=== PATIENT | female | born 1995 | race Caucasian/White ===

== ENCOUNTER 2017-03-26 13:49 | Outpatient (CLI) ==
[2017-03-23 10:56] VITALS: BMI 22.8
--- NOTE | 2017-03-26 14:16 | CT ---
EXAM: CT brain without contrast HISTORY: Headache TECHNIQUE: CT of the brain without intravenous contrast FINDINGS: There is no acute hemorrhage midline shift or mass effect. No hydrocephalus or abnormal e xtra-axial fluid collection. No significant parenchymal attenuation abnormality. The bony cranium a ppears normal. The visualized paranasal sinuses are clear. Soft tissues without significant abnormali ty. IMPRESSION: 1. CT of the brain within normal limits.
== END 2017-03-26 13:50 | disposition home or self-care (01) ==
LOC: RAD 13:49
PROVIDERS: ATTEND Emergency Medicine
DX: R51 Headache (principal)

== ENCOUNTER 2017-03-27 12:31 | Outpatient (CLI) ==
[2017-03-23 10:56] VITALS: BMI 22.8
--- NOTE | 2017-03-27 13:24 | CT ---
EXAM: CT of the lumbar spine without contrast History: Lumbar radiculopathy. Technique: Multiplanar CT images through the lumbar spine were obtained without the administration o f IV contrast Findings: Moderate amount of colonic stool. No acute fracture or subluxation of the lumbar spine. Disc space heights are preserved. T12-L1: No significant disc bulge, central canal stenosis or neural foraminal narrowing. L1-L2: No significant disc bulge, central canal stenosis or neural foraminal narrowing. L2-L3: No significant disc bulge, central canal stenosis or neural foraminal narrowing. L3-L4: Small disc bulge effacing the anterior thecal sac with no significant central canal stenosis or neural foraminal narrowing. L4-L5: Small disc bulge effacing the anterior thecal sac with no significant central canal stenosis or neural foraminal narrowing. L5-S1: No significant disc bulge, central canal stenosis or neural foraminal narrowing. Impression: 1. No acute osseous abnormality of the lumbar spine. 2. No significant degenerative changes of the lumbar spine with level by level analysis as detailed above. 3. Moderate amount of colonic stool.
== END 2017-03-27 12:32 | disposition home or self-care (01) ==
LOC: RAD 12:31
PROVIDERS: ATTEND Emergency Medicine
DX: M47.26 Other spondylosis with radiculopathy, lumbar region (principal)

== ENCOUNTER 2017-03-29 12:45 | Outpatient (CLI) ==
[2017-03-23 10:56] VITALS: BMI 22.8
--- NOTE | 2017-03-29 13:25 | CT ---
EXAM: CT of the thoracic spine without contrast History: Thoracic back pain. Comparison: Lumbar spine CT 03/27/2017 Technique: Multiplanar CT images through the thoracic spine were obtained without the administration of IV contrast Findings: The visualized lungs are free of consolidation. 5 mm incidental pleural-based nodule with in the right lower lung. Micronodules with tree in bud opacities seen within the left lower lobe. N o acute fracture or subluxation of the thoracic spine. Disc space heights are preserved. The bony s lars canal is not compromised. No significant bony neural foraminal narrowing. Impression: 1. No acute osseous abnormality of the thoracic spine and no significant degenerative changes of the thoracic spine. 2. Left lower lobe bronchopneumonia.
== END 2017-03-29 12:46 | disposition home or self-care (01) ==
LOC: RAD 12:45
PROVIDERS: ATTEND Emergency Medicine
DX: M47.24 Other spondylosis with radiculopathy, thoracic region (principal)

== ENCOUNTER 2017-04-19 21:14 | Emergency (ER) ==
[2017-04-19 21:24] VITALS: BP 117/70; TEMP 97.8; BMI 20.7
--- NOTE | 2017-04-19 22:23 | ED.PDOC ---
General ED Provider: Dr. ADILENE ALVARADO Chief Complaint: Non-specific Complaint Stated Complaint: Patient is a 21 year old female who comes to the Er after she removed a mucus plug with some mild bleeding. She was worried that she may need an antibiotic. she states she knows that she has a perforated septum but has no history of snortting cocaine. She also Denies having a nose ring. Also complains of sinus conjestion and pain mostly on the right. Time Seen by Physician: 22:20 Mode of Arrival: Walk-In Information Source: Patient Exam Limitations: No limitations Primary Care Provider: [facility] Nursing and Triage Documentation Reviewed and Agree: Yes Review of Systems - Review Of Systems Constitutional: Reports: Fever Eyes: Reports: No symptoms Ears, Nose, Mouth, Throat: Reports: Epistaxis Respiratory: Reports: No symptoms Cardiac: Reports: No symptoms GI: Reports: No symptoms : Reports: No symptoms Musculoskeletal: Reports: No symptoms Skin: Reports: No symptoms Neurological: Reports: Anxiety, Headache Endocrine: Reports: No symptoms Hematologic/Lymphatic: Reports: No symptoms All Other Systems: Reviewed and Negative Past Medical History - Past Medical History Previously Healthy: Yes Endocrine: Reports: None Cardiovascular: Reports: None Respiratory: Reports: None Hematological: Reports: None Gastrointestinal: Reports: None Genitourinary: Reports: None Neuro/Psych: Reports: None Musculoskeletal: Reports: None Cancer: Reports: None Last Menstrual Period: 1 year ago - depo shot - Surgical History General Surgical History: Reports: None - Family History Family History: Reports: None - Social History Smoking Status: Current every day smoker, Heavy tobacco smoker Hx Substance Use: No Alcohol Screening: None - Immunizations Tetanus Shot up to Date: Yes Physical Exam - Physical Exam Appearance: Well-appearing Eyes: TONO, EOMI, Conjunctiva clear ENT: Epistaxis (dried blood. Sinus Tendeness on the maxilla) Respiratory: Airway patent, Breath sounds clear, Breath sounds equal, Respirations nonlabored Cardiovascular: RRR, Pulses normal, No rub, No murmur GI/: Soft, Nontender, No masses, Bowel sounds normal, No Organomegaly Musculoskeletal: Normal strength Skin: Warm, Dry, Normal color Neurological: Sensation intact, Motor intact, Reflexes intact, Cranial nerves intact, Alert, Oriented Psychiatric: Anxious Critical Care Note - Critical Care Note Total Time (mins): 0 Course - Course Vital Signs: Temp Pulse Resp BP Pulse Ox 04/19/17 21:15 97.8 F 79 20 117/70 99 Departure - Departure Time of Disposition: 22:25 Disposition: HOME SELF-CARE Discharge Problem: Epistaxis not due to trauma Acute sinusitis Qualifiers: Sinusitis location: maxillary Recurrence: non-recurrent Qualified Code(s): J01.00 - Acute maxillary sinusitis, unspecified Instructions: Sinusitis (ED), Nosebleed (ED) Condition: Fair Pt referred to PMD for follow-up: Yes Additional Instructions: Do not pick nose Use Over the counter ocean spray to irrigate the nostrils Quit smoking. Prescriptions: Amoxicillin/Potassium Clav [Augmentin 875-125 mg Tab] 1 tab PO Q12HR #20 tablet Ibuprofen [Motrin] 600 mg PO Q6H PRN #20 tablet PRN Reason: Analgesia Allergies/Adverse Reactions: Allergies No Known Allergies Allergy (Verified 04/19/17 21:23) Home Medications: Ambulatory Orders Dicyclomine HCl 10 mg PO TID tab-cap 03/23/17 Ranitidine HCl 300 mg PO BID tab-cap 03/23/17 Amoxicillin/Potassium Clav [Augmentin 875-125 mg Tab] 1 tab PO Q12HR #20 tablet 04/19/17 Ibuprofen [Motrin] 600 mg PO Q6H PRN #20 tablet 04/19/17 Disposition Discussed With: Patient, Family
[2017-04-19] MEDS ORDERED: AUGMENTIN 875-125 MG TAB PO STA (22:41)
== END 2017-04-19 22:55 | disposition home or self-care (01) ==
LOC: ED 21:14
DX: J01.00 Acute maxillary sinusitis, unspecified (principal); R04.0 Epistaxis; F17.210 Nicotine dependence, cigarettes, uncomplicated
CPT/HCPCS: 99282